=== PATIENT | female | born 1990 | race Caucasian/White ===

== ENCOUNTER 2017-12-18 03:22 | Emergency (ER) | payer SELFPAY ==
[~2017-12-18] VITALS: Ht 172.7 cm; Wt 75.0 kg
[2017-12-18 03:36] VITALS: BP 129/71; PULSE 92; RESP 16; TEMP 98.4; O2SAT 98
[2017-12-18] MEDS ORDERED: CLON1TAB PO (03:46)
[2017-12-18] MEDS ORDERED: CLON0.5T PO (04:02)
--- NOTE | 2017-12-18 04:12 | RADRPT ---
EXAM DATE/TIME: 12/18/2017 03:59 [facility] COMPARISON: No previous studies available for comparison. INDICATIONS : Altered mental status. RADIATION DOSE: 56.35 CTDIvol (mGy) MEDICAL HISTORY : Substance abuse SURGICAL HISTORY : Gastric bypass. Appendectomy.Cholecystectomy. ENCOUNTER: Initial ACUITY: 1 day PAIN SCALE: 0/10 LOCATION: cranial TECHNIQUE: Multiple contiguous axial images were obtained of the head. Using automated exposure control and adj ustment of the mA and/or kV according to patient size, radiation dose was kept as low as reasonably a chievable to obtain optimal diagnostic quality images. DICOM format image data is available electro nically for review and comparison. FINDINGS: CEREBRUM: The ventricles are normal for age. No evidence of midline shift, mass lesion, hemorrhage or acute in farction. No extra-axial fluid collections are seen. POSTERIOR FOSSA: The cerebellum and brainstem are intact. The 4th ventricle is midline. The cerebellopontine angle i s unremarkable. EXTRACRANIAL: The visualized portion of the orbits is intact. SKULL: The calvaria is intact. No evidence of skull fracture. CONCLUSION: Normal examination. Harish Orourke MD on December 18, 2017 at 4:10 Board Certified Radiologist. This report was verified electronically.
--- NOTE | 2017-12-18 04:20 | PD ---
HPI Chief Complaint: Altered Mental Status Time Seen by Provider: 03:37 Travel History International Travel<30 days: No Contact w/Intl Traveler<30days: No Traveled to known affect area: No History of Present Illness HPI The patient is a 27 year old female who presents to the [facility] emergency department with a history of reportedly recently being under a significant amount of stress. She reports that she was having difficulty sleeping, therefore she drank vodka and then took 2 clonazepam tablets. She reports that she is on clonazepam for anxiety, however she does not take them on a regular basis. He also reports that she does not drink regularly. She denies having any suicidal or homicidal ideations. She was found by her boyfriend on the bed thrashing around and altered, therefore the patient was brought in by ambulance services. On review of systems otherwise, the patient denies having any recent fevers, cough, congestion, neck pain, chest pain, shortness of breath, abdominal pain, vomiting, diarrhea, urinary symptoms, or neurologic symptoms. LMP: One week ago [facility] Past Medical History Narrative Medical The patient's past medical history is significant for anxiety disorder and history of kidney stones Anxiety: Yes Kidney Stones: Yes Influenza Vaccination: No ?: Not LMP: 1 week ago Past Surgical History Narrative Surgical Cholecystectomy per Abdominal Surgery: Yes (GASTRIC BYPASS) Appendectomy: Yes Cholecystectomy: Yes Genitourinary Surgery: Yes (LITHOTRIPSY) Social History Alcohol Use: Yes (SOCIAL ) Tobacco Use: Yes (1PPD) Substance Use: No Allergies-Medications (Allergen,Severity, Reaction): Coded Allergies: Penicillins (Verified Allergy, Unknown, Hives, 12/18/17) Reported Meds & Prescriptions Reported Meds & Active Scripts Active Reported Clonazepam 0.5 Mg Tab 0.5 Mg PO BID Narrative Medication The patient also reports taking sertraline. Review of Systems Except as stated in HPI: all other systems reviewed are Neg General / Constitutional: No: Fever Eyes: No: Visual changes HENT: No: Headaches Cardiovascular: No: Chest Pain or Discomfort Respiratory: No: Shortness of Breath Gastrointestinal: No: Abdominal Pain Genitourinary: No: Dysuria Musculoskeletal: No: Pain Skin: No Rash Neurologic: Positive: Change in Mentation, Slurred Speech, No: Weakness, Focal Abnormalities, Sensory Disturbance Psychiatric: Positive: Mood Disorder, No: Depression, Suicidal Ideations, Homicidal Ideation Endocrine: No: Polydipsia Hematologic/Lymphatic: No: Easy Bruising Physical Exam Narrative General: The patient is a well-developed well-nourished female in no acute distress, drowsy on examination on arrival. Head and Neck exam: Head is normocephalic atraumatic. Eyes: EOMI, pupils are dilated to 6 mm although reactive to light bilaterally. Nose: Midline septum with pink mucous membranes Mouth: Dentition unremarkable. Moist mucus membranes. Posterior oropharynx is not erythematous. No tonsillar hypertrophy. Uvula midline. Airway patent. Neck: No palpable lymphadenopathy. No nuchal rigidity. No thyromegaly. Cardiovascular: Regular rate and rhythm without murmurs, gallops, or rubs. Lungs: Clear to auscultation bilaterally. No wheezes, rhonchi, or rales. Abdomen: Soft, without tenderness to palpation in all 4 quadrants of the abdomen. No guarding, rebound, or rigidity. Normal bowel sounds are audible. No tenderness on palpation of McBurney's point. Negative Browning sign. Extremities: No clubbing, cyanosis, or edema. 2+ pulses in all 4 extremities. No calf tenderness on palpation. Back: No spinous process tenderness to palpation. No costovertebral angle tenderness to palpation. Neurologic Exam: Grossly nonfocal. The patient has an odor of alcohol about her. The patient is oriented to person and place, however not time or situation. Skin Exam: No rash noted. Intact skin that is warm and dry. Data Data Last Documented VS Vital Signs Date Time Temp Pulse Resp B/P (MAP) Pulse Ox O2 Delivery O2 Flow Rate FiO2 12/18/17 05:39 92 20 144/94 (111) 98 Room Air 12/18/17 03:36 98.4 Orders Orders Complete Blood Count With Diff (12/18/17 03:41) Comprehensive Metabolic Panel (12/18/17 03:41) Prothrombin Time / Inr (Pt) (12/18/17 03:41) Act Partial Throm Time (Ptt) (12/18/17 03:41) Lipase (12/18/17 03:41) Urinalysis - C+S If Indicated (12/18/17 03:41) Magnesium (Mg) (12/18/17 03:41) Ammonia (12/18/17 03:41) Osmolality, Urine (12/18/17 03:41) Osmolality,Serum (12/18/17 03:41) Chest, Single Ap (12/18/17 03:41) Ct Brain W/O Iv Contrast(Rout) (12/18/17 03:41) Iv Access Insert/Monitor (12/18/17 03:41) Ecg Monitoring (12/18/17 03:41) Oximetry (12/18/17 03:41) Ed Urine Pregnancytest Poc (12/18/17 03:41) Drug Screen, Random Urine (12/18/17 03:41) Alcohol (Ethanol) (12/18/17 03:41) Salicylates (Aspirin) (12/18/17 03:41) Tylenol (Acetaminophen) (12/18/17 03:41) Sodium Chlor 0.9% 1000 Ml Inj (Ns 1000 M (12/18/17 04:45) Thiamine Inj (Thiamine Inj) (12/18/17 04:45) Electrocardiogram (12/18/17 03:42) Sodium Chlor 0.9% 1000 Ml Inj (Ns 1000 M (12/18/17 07:15) Labs Laboratory Tests Test 12/18/17 03:35 12/18/17 04:30 12/18/17 04:38 White Blood Count 6.4 TH/MM3 Red Blood Count 4.08 MIL/MM3 Hemoglobin 10.5 GM/DL Hematocrit 33.3 % Mean Corpuscular Volume 81.6 FL Mean Corpuscular Hemoglobin 25.7 PG Mean Corpuscular Hemoglobin Concent 31.4 % Red Cell Distribution Width 19.7 % Platelet Count 324 TH/MM3 Mean Platelet Volume 8.1 FL Neutrophils (%) (Auto) 71.0 % Lymphocytes (%) (Auto) 20.8 % Monocytes (%) (Auto) 6.7 % Eosinophils (%) (Auto) 0.7 % Basophils (%) (Auto) 0.8 % Neutrophils # (Auto) 4.5 TH/MM3 Lymphocytes # (Auto) 1.3 TH/MM3 Monocytes # (Auto) 0.4 TH/MM3 Eosinophils # (Auto) 0.0 TH/MM3 Basophils # (Auto) 0.1 TH/MM3 CBC Comment DIFF FINAL Differential Comment Blood Urea Nitrogen 5 MG/DL Creatinine 0.80 MG/DL Random Glucose 79 MG/DL Total Protein 7.9 GM/DL Albumin 3.7 GM/DL Calcium Level 8.4 MG/DL Magnesium Level 1.9 MG/DL Alkaline Phosphatase 98 U/L Aspartate Amino Transf (AST/SGOT) 451 U/L Alanine Aminotransferase (ALT/SGPT) 77 U/L Total Bilirubin 0.8 MG/DL Sodium Level 143 MEQ/L Potassium Level 3.9 MEQ/L Chloride Level 113 MEQ/L Carbon Dioxide Level 17.9 MEQ/L Anion Gap 12 MEQ/L Estimat Glomerular Filtration Rate 85 ML/MIN Lipase 279 U/L Salicylates Level LESS THAN 1.7 MG/DL Acetaminophen Level LESS THAN 2.0 MCG/ML Ethyl Alcohol Level 156 MG/DL Prothrombin Time 10.4 SEC Prothromb Time International Ratio 1.0 RATIO Activated Partial Thromboplast Time 22.6 SEC Serum Osmolality 328 MOSM/KG Ammonia 51 MCMOL/L MDM Medical Decision Making Medical Screen Exam Complete: Yes Emergency Medical Condition: Yes Medical Record Reviewed: Yes Differential Diagnosis Alcohol intoxication, versus other substance intoxication, versus postictal state, versus intracranial abnormality, versus encephalopathy Narrative Course During the course of the patient's emergency department visit, the patient's history, examination, and differential diagnosis were reviewed with the patient. The patient was placed on a quality assurance monitor body with oximetry and frequent blood pressure monitoring. The patient had IV access obtained and blood work sent for analysis. The patient had an EKG done on arrival that shows a sinus rhythm heart rate of 91, QRS duration is 83 ms, QTC [address] segment elevation. The patient was initially provided normal saline 1 L IV fluid bolus, thiamine 100 mg IV The patient's laboratory studies were reviewed and remarkable for a white count of 6.4, hemoglobin 10.5, platelets 324 with 71 neutrophils, CMP is remarkable for a chloride of 113, CO2 17.9, BUN 5, GFR of 85, AST 451, ALT 77, ammonia level 51. PT 10.4, PTT 22.6. Salicylate less than 1.7, acetaminophen less than 2, alcohol level 156 Radiology studies were reviewed and remarkable for a chest x-ray that shows no acute abnormality, atelectasis at the bases is noted. CT scan of the brain shows normal examination. The patient on reexamination after observation in the emergency department has become more awake and alert and oriented 4. The patient had elevated liver enzymes with mildly elevated ammonia level. The patient has no asterixis. The patient has no tremulousness. The patient was instructed regarding her elevated liver enzymes which is likely alcohol induced. The patient is instructed to follow-up with her primary care physician for repeat liver function tests in 1 week. The patient is instructed to avoid alcohol and Tylenol. The patient is resting comfortably and feels better, is alert and in no distress. The patient's results and examination findings were discussed with the patient. The repeat examination is unremarkable and benign. The history, exam, diagnostic testing, and current condition do not suggest any significant pathology to warrant further testing, continued ED treatment, admission, or surgical evaluation at this point. The vital signs have been stable. The patient does not have uncontrollable pain, intractable vomiting, or other significant symptoms. The patient's condition is stable and appropriate for discharge. The patient will pursue further outpatient evaluation with a primary care physician or other designated or consulting physician as indicated in the discharge instructions. The patient expressed understanding and was agreeable with this plan. Diagnosis Primary Impression: Elevated liver enzymes Additional Impressions: Alcohol intoxication Qualified Codes: F10.929 - Alcohol use, unspecified with intoxication, unspecified Polysubstance abuse Referrals: [facility] 1 week Patient Instructions: Alcohol Intoxication (ED), General Instructions, Polysubstance Abuse (ED) Additional Instructions: The patient had elevated liver enzymes with mildly elevated ammonia level. The patient has no asterixis. The patient has no tremulousness. The patient was instructed regarding her elevated liver enzymes which is likely alcohol induced. The patient is instructed to follow-up with her primary care physician for repeat liver function tests in 1 week. The patient is instructed to avoid alcohol and Tylenol. The patient is given an outpatient lab slip to obtain this repeat elevated liver enzyme tests in 1 week. Med/Other Pt SpecificInfo: No Change to Rachel Quevedo MD Dec 18, 2017 04:19
[2017-12-18 04:30] LABS: AUTOMATED NEUTROPHIL # 4.5 TH/MM3 (1.8-7.7); BASOPHIL # 0.1 TH/MM3 (0-0.2); BASOPHIL % 0.8 % (0.0-2.0); EOSINOPHIL % 0.7 % (0.0-4.0); HEMATOCRIT 33.3 % (35.0-46.0); HEMOGLOBIN 10.5 GM/DL (11.6-15.3); LYMPH % 20.8 % (9.0-44.0); LYMPHOCYTE # 1.3 TH/MM3 (1.0-4.8); MEAN CELL VOLUME 81.6 FL (80.0-100.0); MEAN CORPUSCULAR HEMOGLOBIN 25.7 PG (27.0-34.0); MEAN CORPUSCULAR HGB CONC 31.4 % (32.0-36.0); MEAN PLATELET VOLUME 8.1 FL (7.0-11.0); MONO % 6.7 % (0.0-8.0); MONOCYTE # 0.4 TH/MM3 (0-0.9); PLATELET COUNT 324 TH/MM3 (150-450); RED BLOOD COUNT 4.08 MIL/MM3 (4.00-5.30); RED CELL DISTRIBUTION WIDTH 19.7 % (11.6-17.2); WHITE BLOOD COUNT 6.4 TH/MM3 (4.0-11.0)
--- NOTE | 2017-12-18 04:31 | RADRPT ---
EXAM DATE/TIME: 12/18/2017 03:52 [facility] COMPARISON: No previous studies available for comparison. INDICATIONS : Cough. MEDICAL HISTORY : None. SURGICAL HISTORY : None. ENCOUNTER: Initial ACUITY: 1 day PAIN SCORE: 0/10 LOCATION: Bilateral chest FINDINGS: A single view of the chest demonstrates minimal bibasilar densities. Heart normal in size. Diminished lung volumes. The cardiomediastinal contours are unremarkable. Osseous structures are intact. CONCLUSION: Bibasilar densities. Harish Orourke MD on December 18, 2017 at 4:28 Board Certified Radiologist. This report was verified electronically.
[2017-12-18 04:38] LABS: ALBUMIN 3.7 GM/DL (3.4-5.0); ALT (GPT) 77 U/L (10-53); AST (GOT) 451 U/L (15-37); BICARBONATE 17.9 MEQ/L (21.0-32.0); BLOOD UREA NITROGEN 5 MG/DL (7-18); CALCIUM 8.4 MG/DL (8.5-10.1); CHLORIDE 113 MEQ/L (98-107); GLOMERULAR FILTRATION RATE 85 ML/MIN (>89); GLUCOSE,RANDOM 79 MG/DL (74-106); MAGNESIUM 1.9 MG/DL (1.5-2.5); SODIUM (NA) 143 MEQ/L (136-145)
[2017-12-18 04:41] LABS: ALKALINE PHOSPHATASE 98 U/L (45-117); TOTAL BILIRUBIN ADULT 0.8 MG/DL (0.2-1.0); TOTAL PROTEIN 7.9 GM/DL (6.4-8.2)
[2017-12-18 04:42] LABS: ACETAMINOPHEN LESS THAN 2.0 MCG/ML (10.0-30.0)
[2017-12-18] MEDS ORDERED: THIAMINE INJ 100 MG in SODIUM CHLORIDE 0.9% INJ 100 ML IV ONE (04:45)
[2017-12-18] MEDS ORDERED: SODIUM CHLOR 0.9% 1000 ML INJ 1,000 ML IV ONE ×2 (04:45→07:15)
[2017-12-18 04:55] LABS: PROTHROMBIN TIME - PATIENT 10.4 SEC (9.8-11.6)
[2017-12-18 05:39] VITALS: BP 144/94; PULSE 92; RESP 20; O2SAT 98
[2017-12-18 08:32] VITALS: BP 134/74; PULSE 80; RESP 18; O2SAT 97
[2017-12-18 09:08] LABS: BACTERIA, URINE RARE /hpf; BILIRUBIN, URINE NEG (NEG); BLOOD, URINE NEG (NEG); GLUCOSE,URINE NEG (NEG); KETONE, URINE NEG (NEG); NITRITE,URINE NEG (NEG); PH, URINE 5.5 (5.0-8.5); URINE COLOR COLORLESS (YELLW/STRAW); URINE LEUKOCYTE ESTERASE NEG (NEG)
[2017-12-18 09:40] VITALS: BP 124/78
--- NOTE | 2017-12-19 00:16 | EKG ---
Date Performed: 12/18/2017 Time Performed: 03:42:47 PTAGE: 27 years EKG: Sinus rhythm NORMAL ECG NO PREVIOUS TRACING DOCTOR: Robbin Santillan Interpretating Date/Time 12/19/2017 00:08:15
== END 2017-12-18 10:34 | disposition home or self-care (01) ==
LOC: NEPC 03:22
DX: F10.929 Alcohol use, unspecified with intoxication, unspecified (principal); R74.8 Abnormal levels of other serum enzymes; F19.10 Other psychoactive substance abuse, uncomplicated; F17.200 Nicotine dependence, unspecified, uncomplicated; F41.9 Anxiety disorder, unspecified; Y90.6 Blood alcohol level of 120-199 mg/100 ml; Z79.899 Other long term (current) drug therapy
CPT/HCPCS: 70450; 71045; 80053; 80307; 81001; 82140; 83690; 83735; 83930; 83935; 84703; 85025; 85610; 85730; 93005; 96365; 96366; 99285; J3411; J7030